=== PATIENT | male | born 1995 | race Caucasian/White ===

== ENCOUNTER 2017-06-02 12:46 | Emergency (ER) | payer MEDICAID, OTHER, SELFPAY ==
[2017-06-02] MEDS: IBUPROFEN 800 MG TAB PO (16:56)
== END 2017-06-02 17:00 | disposition home or self-care (01) ==
LOC: M ED 12:46
DX: B34.9 Viral infection, unspecified (principal); R05 Cough; R50.9 Fever, unspecified; F17.200 Nicotine dependence, unspecified, uncomplicated
CPT/HCPCS: 87804

== ENCOUNTER 2017-08-13 17:21 | Emergency (ER) | payer OTHER, MEDICAID | END 2017-08-13 20:06 | disposition home or self-care (01) | LOC: M ED 17:21 | DX: S00.03XA Contusion of scalp, initial encounter (principal); W10.9XXA Fall (on) (from) unspecified stairs and steps, initial encounter; Y92.009 Unspecified place in unspecified non-institutional (private) residence as the place of occurrence of the external cause; F11.21 Opioid dependence, in remission; F17.200 Nicotine dependence, unspecified, uncomplicated; Z88.8 Allergy status to other drugs, medicaments and biological substances; Z79.899 Other long term (current) drug therapy | CPT/HCPCS: 99283 ==

== ENCOUNTER 2017-09-04 16:16 | Emergency (ER) | payer OTHER | END 2017-09-04 18:29 | disposition left against medical advice (07) | LOC: M ED 16:16 | DX: R51 Headache (principal); Z53.21 Procedure and treatment not carried out due to patient leaving prior to being seen by health care provider ==

== ENCOUNTER → 2017-09-18 | Outpatient (CLI) | payer OTHER ==
[2017-09-18 13:38] LABS: HEMATOCRIT 37.2 % (42.0-52.0); HEMOGLOBIN 12.6 g/dl (13.5-17.5); MEAN CORPUSCULAR HEMOGLOBIN 31.1 pg (27.0-33.0); MEAN CORPUSCULAR HGB CONC 33.9 g/dl (32.0-36.5); MEAN CORPUSCULAR VOLUME 91.9 fl (80.0-96.0); PLATELET COUNT, AUTOMATED 327 10^3/uL (150-450); RED BLOOD COUNT 4.05 10^6/uL (4.30-6.10); RED CELL DISTRIBUTION WIDTH 11.9 % (11.5-14.5); WHITE BLOOD COUNT 10.4 10^3/uL (4.0-10.0)
[2017-09-18 14:41] LABS: ALBUMIN 3.8 GM/DL (3.2-5.2); ALBUMIN/GLOBULIN RATIO 1.15 (1.00-1.93); ALKALINE PHOSPHATASE 74 U/L (45-117); ALT/SGPT 23 U/L (12-78); ANION GAP 4 MEQ/L (8-16); AST/SGOT 19 U/L (7-37); BILIRUBIN,TOTAL 0.5 MG/DL (0.2-1.0); BLOOD UREA NITROGEN 9 MG/DL (7-18); CARBON DIOXIDE LEVEL 29 MEQ/L (21-32); CHLORIDE LEVEL 109 MEQ/L (98-107); CREATININE FOR GFR 0.85 MG/DL (0.70-1.30); GLUCOSE, FASTING 58 MG/DL (70-100); POTASSIUM SERUM 4.3 MEQ/L (3.5-5.1); SODIUM LEVEL 142 MEQ/L (136-145); TOTAL PROTEIN 7.1 GM/DL (6.4-8.2)
[2017-09-18 14:46] LABS: HEPATITIS B SURFACE ANTIGEN NEGATIVE (NEGATIVE)
[2017-09-18 15:15] LABS: HIV 1&2 SCREEN CENTAUR NEGATIVE (NEGATIVE)
[2017-09-18 15:47] LABS: CHLAMYDIA DNA AMPLIFICATION NEGATIVE (NEGATIVE); GC DNA AMPLIFICATION NEGATIVE (NEGATIVE)
== END ==
LOC: M LAB 13:03
DX: F11.20 Opioid dependence, uncomplicated (principal)
CPT/HCPCS: 93005